=== PATIENT | female | born 1955 | race Two or more races ===

== ENCOUNTER 2022-03-18 10:24 | Emergency (ER) | payer MEDICARE, OTHER ==
[~2022-03-18] VITALS: Ht 162.6 cm; Wt 74.5 kg
[2022-03-18 11:11] VITALS: BP 146/89
== END 2022-03-18 13:01 | disposition left against medical advice (07) ==
LOC: ER 10:24
DX: R05.9 Cough, unspecified (principal); Z53.21 Procedure and treatment not carried out due to patient leaving prior to being seen by health care provider
CPT/HCPCS: 71046